=== PATIENT | male | born 1985 | race Caucasian/White ===

== ENCOUNTER 2020-04-05 12:27 | Outpatient (REF) | payer OTHER, SELFPAY | END 2020-04-05 12:28 | disposition home or self-care (01) | LOC: HO.LAB 12:27 | PROVIDERS: Visit Provider Internal Medicine | DX: Z20.828 Contact with and (suspected) exposure to other viral communicable diseases (principal) | CPT/HCPCS: U0003 ==

== ENCOUNTER → 2021-11-12 10:05 | Outpatient (BNVA) | payer OTHER, SELFPAY | PROVIDERS: PCP Internal Medicine; Visit Provider Internal Medicine Cardiovascular Disease | DX: R94.31 Abnormal electrocardiogram [ECG] [EKG] (principal) | CPT/HCPCS: 99202 ==

== ENCOUNTER → 2021-11-13 09:46 | Outpatient (REF) | payer OTHER, SELFPAY ==
--- NOTE | 2021-11-13 09:50 | CA_ITS ---
Acquisition Time: 2021-11-13 09:56:59 Total Exercise Time: 00:09:32 Test Indications: Abnormal ECG Medications: NONE Protocol: ISMAEL Max HR: 148 BPM 80% of Pred: 185 BPM Max BP: 206/128 mmHG Max Work Load: 10.9 METS Exercise stress test with exercise 9 min 32 sec of Ismael protocol, achieving 78% MPHR, without anginal symptoms, with isolated PVC, with hypertensive response to exercise with max BP 206/128, with nondiagnostic EKG for ischemia due to suboptimal heart rate and baseline EKG abnormality. Exercise stopped due to hypertensive response. In recovery his BP gradually came down to near baseline. Test reviewed with Dr Hernandez. Referred By: Mauro Hernandez Overread By: JUAN ELDRIDGE
--- NOTE | 2021-11-13 09:50 | CA_ITS ---
Transthoracic Echocardiogram Patient (Last, First, Middle): Elias Feng, Gender: Male Date of : 1985 Age: 35 Procedure Date: 11/13/2021 Procedure Type: Transthoracic Echocardiogram Location: OP Height: 172.72 cm Weight: 102.06 kg BSA: 2.15 m2 Heart Rate: 84 bpm BP: 146 / 98 mmHg Radio Antenna Installer: SB Referring MD: Mauro Hernandez MD Symptoms: R94.31 - Abnormal electrocardiogram [ECG] [EKG] Study Quality: Good ECG Rhythm: Sinus Conclusions: - The left ventricular systolic function is low normal. The visually estimated ejection fraction is between 50-55%. - Moderate to severe concentric left ventricular hypertrophy; some asymmetric septal predominance. - LV peak GLS -12.1%. - There is mild dilatation of the ascending aorta measuring 4.10 cm. - No obvious valvular pathology seen on this study. Findings Left Ventricle Normal left ventricular cavity size. The left ventricular systolic function is low normal. The visually estimated ejection fraction is between 50-55%. There is no evidence of regional wall motion abnormalities. E/E prime ratio is between 8 and 15 consistent with indeterminate filling pressures. Evidence suggests grade I (mild) diastolic dysfunction. LV peak GLS -12.1%. Moderate to severe concentric left ventricular hypertrophy; some asymmetric septal predominance. Right Ventricle Normal right ventricular cavity size and systolic function. Atria Both atria are normal in size. Aortic Valve There is a normal trileaflet aortic valve. There is no aortic valve stenosis. There is no aortic valve regurgitation. Mitral Valve The mitral valve appears normal. There is no mitral valve regurgitation. There is no mitral valve stenosis. Pulmonic Valve The pulmonic valve is likely normal. Tricuspid Valve Normal tricuspid valve structure. There is trace tricuspid valve regurgitation. The pulmonary artery systolic pressure is normal. Great Vessels There is mild dilatation of the ascending aorta measuring 4.10 cm. Venous The inferior vena cava is normal in size and collapses less than 50% with inspiration. Pericardium/Pleural There is no evidence of pericardial effusion. Prior Study Comparison No prior study available for comparison. Recommendations, Care & Conclusions No obvious valvular pathology seen on this study. Measurements 2D Linear Measurements IVSd: 1.70 0.6-0.9/0.6-1.0 cm LVIDd: 4.61 3.9-5.3/4.2-5.9 cm LVIDd Index: 2.14 2.4-3.2/2.2-3.1 cm/m2 LVIDs: 3.55 2.0-3.6 cm LVPWd: 1.43 0.7-1.1 cm LA Diam: 4.20 2.7-3.8/3.0-4.0 cm LAIDs Index: 1.95 1.5-2.3 cm/m2 LV Mass: 380.34 67-162/88-224 g LV Mass Index: 176.90 43-95/49-115 g/m2 LVOT Diam: 2.20 3.0+(-)1.3 cm 2D Systolic Function EF 4C: 55.90 >55% EF 2C: 45.70 >55% EF BiP: 50.30 >55% Mitral Valve MV Pk E: 0.76 MV PK A: 0.93 MV Decel Time: 154.00 E/A: 0.80 E'Lateral: 6.31 E'Medial: 4.35 E/E' Med: 17.40 E/E' Lat: 12.00 PHT: 45.00 MVA PHT: 4.89 Decel [place]: 4.92 Aortic Valve AoV Pk Jono: 1.32 AoV Mn Jono: 0.92 AoV VTI: 0.23 AoV Pk Grad: 7.00 Aov Mn Grad: 4.00 ERMIAS Cont.VTI: 3.21 LVOT LVOT Pk Jono: 1.02 LVOT Mn Jono: 0.73 LVOT VTI: 0.20 LVOT Pk Grad: 4.00 LVOT Mn Grad: 2.00 LVOT Diam: 2.20 LVOT Area: 3.80 Diastolic Function MV Pk E: 0.76 MV Pk A: 0.93 E/A: 0.80 E'Medial: 4.35 E/E' Med: 17.40 E' Laterial: 6.31 E/E' Lat: 12.00 Right Ventricle TAPSE (mm): 18.60 TVS' Jono: 15.80 Tricuspid Valve RA Press: 8.00 Great Vessels Aorta Sinus of Valsalva: 3.20 2.0-3.5 cm Ao Asc: 4.10 2.1-3.4 cm Ao Arch: 2.20 Ao Desc: 1.50 Pulmonary Valve PV Pk Jono: 1.09 Peak PV Grad: 5.00 Updated in Other Vendor System with Status of Final Michael Workman MD electronically signed on 11/14/2021 3:02:47 PM with status of Final
== END ==
LOC: HO.CARD 09:46
PROVIDERS: PCP Internal Medicine; Visit Provider Internal Medicine Cardiovascular Disease
DX: R94.31 Abnormal electrocardiogram [ECG] [EKG] (principal)
CPT/HCPCS: 93017; 93306; 93356

== ENCOUNTER → 2021-12-16 09:42 | Outpatient (REF) | payer OTHER, SELFPAY ==
--- NOTE | ~2021-12-16 | NM_ITS ---
Exercise Myocardial perfusion study Indication: Chest pain to evaluate for myocardial ischemia Technique: The patient was brought in for an exercise perfusion study on 12/16/2021. Patient performed exercise as per Cecil protocol and was injected 30 mCi of sestamibi was given intravenously one target HR was achieved. Images were obtained using the SPECT gamma camera interlaced with the gating device. Images were obtained in supine position. Resting perfusion study was performed on 12/17/2021. Patient was administered 30 mCi of sestamibi intravenously at rest. Images were then obtained in supine position. Images obtained with and without CT attenuation. Total DLP 100 mGy-cm Images were processed with the software and compared side to side in short axis, horizontal long axis and vertical long axis views. Findings: The stress perfusion study showed non attenuated images show mildly reduced uptake in the basal inferior and basal inferolateral wall of the LV myocardium. Remainder of the LV myocardium is normally perfused. Attenuation corrected images show normal uptake of radiotracer in all segments of LV myocardium. The gated study shows normal LV systolic function with calculated LVEF of 59%. LV cavity is normal in size. The gated study shows normal systolic wall thickening and contraction of all segments. There is no transient ischemic dilation. Resting study shows nontender images show no change in perfusion pattern. Gating at rest reveals normal cyst colic wall motion with ejection fraction at greater than 55%. The findings are consistent with no clear reversible defect suggestive of ischemia. NM/NM cardiolite stress test Impression: 1. Normal myocardial perfusion 2. Gated LVEF is 59% 3. Transient ischemic dilatation not present Stress EKG is negative for ischemia
--- NOTE | 2021-12-16 09:44 | CA_ITS ---
Acquisition Time: 2021-12-16 09:48:14 Total Exercise Time: 00:11:01 Test Indications: Abnormal ECG Medications: Protocol: ISMAEL Max HR: 160 BPM 86% of Pred: 184 BPM Max BP: 214/092 mmHG Max Work Load: 13.4 METS Exerccise nuclear with Ismael protocol, total of 11 min 1 sec, METS 13.4, TAPHR 86 %. Pt tolerated test well, Denies any cardiac sx. EKG with occ. PVC's in recovery. Scooped ST depressions seen in leads 2,3 aVF and in leads V4-V6. Nuclear images to follow. Hypertensive response to exercise. Test reviewed with Dr. Hernandez Referred By: Zara Allen Overread By: Mily Mcgrath NP
== END ==
LOC: HO.CARD 09:42
PROVIDERS: Visit Provider Nurse Practitioner Family
DX: I11.9 Hypertensive heart disease without heart failure (principal); R07.9 Chest pain, unspecified; R94.31 Abnormal electrocardiogram [ECG] [EKG]
CPT/HCPCS: 78452; 93017; A9500

== ENCOUNTER → 2022-01-12 10:04 | Outpatient (REF) | payer OTHER, SELFPAY | LOC: HO.SL 10:04 | PROVIDERS: PCP Internal Medicine; Visit Provider Internal Medicine Cardiovascular Disease | DX: R06.83 Snoring (principal); I11.9 Hypertensive heart disease without heart failure | CPT/HCPCS: 95806 ==